=== PATIENT | male | born 1990 | race African-American/Black ===

== ENCOUNTER 2020-05-01 23:42 | Emergency (ER) | payer OTHER ==
[~2020-05-01] VITALS: Ht 188 cm; Wt 102.1 kg
[2020-05-02 01:10] VITALS: BP 121/82
== END 2020-05-02 01:11 | disposition home or self-care (01) ==
LOC: ER 23:42
DX: S16.1XXA Strain of muscle, fascia and tendon at neck level, initial encounter (principal); X58.XXXA Exposure to other specified factors, initial encounter; Y93.89 Activity, other specified; Y92.89 Other specified places as the place of occurrence of the external cause; Y99.8 Other external cause status

== ENCOUNTER 2021-04-10 10:28 | Emergency (ER) | payer OTHER ==
[~2021-04-10] VITALS: Ht 188 cm; Wt 110.2 kg
[2021-04-10] MEDS ORDERED: DOXYCYCLINE 10100 MG PO (13:03)
[2021-04-10 13:53] VITALS: BP 130/88
== END 2021-04-10 13:53 | disposition home or self-care (01) ==
LOC: ER 10:28
DX: N61.1 Abscess of the breast and nipple (principal); F17.210 Nicotine dependence, cigarettes, uncomplicated